=== PATIENT | female | born 1975 | race Caucasian/White ===

== ENCOUNTER 2019-05-09 19:13 | Emergency (ER) | payer MEDICARE ==
--- NOTE | 2019-05-09 19:40 | ERPHSYRPT ---
- History of Present Illness Time Seen by Provider: 05/09/19 19:25 Source: patient Exam Limitations: no limitations Physician History: 43 y/o obese white female presents right groin abscess. noticed this am. pt not diabetic. no other areas. pt can take keflex but does get a yeast infection when she takes it. Timing/Duration: today Quality: painful Severity: mild Location: other (right inguinal crease lower) Possible Causes: no cause identified Associated Symptoms: swelling/mass/lumps, No fever Allergies/Adverse Reactions: Penicillins Allergy (Verified 05/09/19 19:37) - Review of Systems Constitutional: No Symptoms Eyes: No Symptoms Ears, Nose, & Throat: No Symptoms Respiratory: No Symptoms Cardiac: No Symptoms Abdominal/Gastrointestinal: No Symptoms Genitourinary Symptoms: No Symptoms Musculoskeletal: No Symptoms Skin: Other (abscess right groin) Neurological: No Symptoms Psychological: No Symptoms Endocrine: No Symptoms Hematologic/Lymphatic: No Symptoms Immunological/Allergic: No Symptoms All Other Systems: Reviewed and Negative - Past Medical History Pertinent Past Medical History: Yes Neurological History: No Pertinent History ENT History: No Pertinent History Cardiac History: No Pertinent History Respiratory History: No Pertinent History Endocrine Medical History: No Pertinent History Musculoskeletal History: No Pertinent History GI Medical History: No Pertinent History History: No Pertinent History Psycho-Social History: No Pertinent History Female Reproductive Disorders: No Pertinent History - Past Surgical History Neuro Surgical History: No Pertinent History Cardiac: No Pertinent History Respiratory: No Pertinent History Gastrointestinal: No Pertinent History Genitourinary: No Pertinent History Musculoskeletal: No Pertinent History Female Surgical History: No Pertinent History - Nursing Vital Signs Nursing Vital Signs: Initial Vital Signs Temperature 97.8 F 05/09/19 19:22 Pulse Rate 96 H 05/09/19 19:22 Respiratory Rate 18 05/09/19 19:22 Blood Pressure 116/83 05/09/19 19:22 O2 Sat by Pulse Oximetry 98 05/09/19 19:22 Pain Scale Pain Intensity 8 - Physical Exam General Appearance: no apparent distress, alert, anxiety Eye Exam: PERRL/EOMI, eyes nml inspection Ears, Nose, Throat Exam: normal ENT inspection, moist mucous membranes Neck Exam: normal inspection, non-tender, supple, full range of motion Respiratory Exam: No chest tenderness Gastrointestinal/Abdomen Exam: No tenderness Pelvic Exam: not done Rectal Exam: not done Back Exam: normal inspection, normal range of motion, No CVA tenderness, No vertebral tenderness Extremity Exam: normal inspection, normal range of motion, pelvis stable Neurologic Exam: alert, oriented x 3, cooperative, supply chain planner II-XII nml as tested Skin Exam: other (2cm x1cm right inguinal crease. tenderness. bollatable) Lymphatic Exam: No adenopathy SpO2 Interpretation: normal SpO2: 98 O2 Delivery: Room Air Procedures - Incision and Drainage Site: right inguinal crease Anesthesia: none Blade Size: 15 I & D Procedure: betadine prep, culture obtained Results: small amount pus Progress: duglas well - Course Nursing assessment & vital signs reviewed: Yes Ordered Tests: Active Orders 24 hr Category Date Time Status CULTURE,WOUND Stat Lab 05/09/19 19:53 Uncollected Medication Summary Discontinued Medications Generic Name Dose Route Start Last Admin Trade Name Freq PRN Reason Stop Dose Admin Ceftriaxone Sodium 1,000 mg 05/09/19 19:51 Rocephin 1000 Mg Inj IM 05/09/19 19:52 STAT ONE Fluconazole 150 mg 05/09/19 19:51 Diflucan 100 Mg PO 05/09/19 19:52 ONCE ONE - Progress Progress: improved Counseled pt/family regarding: diagnosis, need for follow-up - Departure Departure Disposition: Home Clinical Impression: Abscess Condition: Stable Critical Care Time: No Additional Instructions: sitz bath 2 to 3 times daily with warm soapy water. no ointment or creams. follow up with primary doctor for further management Prescriptions: Hydrocodone/APAP 5/325 [Stringer 5/325 mg] 1 each PO Q8H PRN PRN #8 tablet MDD 3 PRN Reason: Pain Smz/Tmp Ds Tablet [Bactrim Ds Tablet] 1 udtab PO BID #14 tablet
[2019-05-09] MEDS ORDERED: Rocephin 1000 MG INJ IM ONE (19:51)
[2019-05-09] MEDS ORDERED: Diflucan 100 MG PO ONE (19:51)
[2019-05-09] MEDS ORDERED: NORCO 5/325 MG PO ONE (19:54)
[2019-05-09] MEDS ORDERED: XYLOCAINE 1% HCL 20 ML MDV ONE (20:00)
[2019-05-09] MEDS ORDERED: Rocephin 1000 MG INJ ONE (20:00)
[2019-05-09] MEDS ORDERED: NORCO 5/325 MG ONE (20:00)
[2019-05-09 20:14] VITALS: BP 109/68; PULSE 88; O2SAT 99
== END 2019-05-09 20:24 | disposition home or self-care (01) ==
LOC: ED 19:13
DX: L02.214 Cutaneous abscess of groin (principal)
CPT/HCPCS: 10060; 87070; 96372; 99284; J0696; A9270-GY